=== PATIENT | female | born 1950 | race Caucasian/White ===

== ENCOUNTER 2017-12-31 10:59 | Outpatient (CLI) | payer BC | END 2017-12-31 11:00 | disposition home or self-care (01) | LOC: BICMAMMO 10:59 | PROVIDERS: ATTEND Internal Medicine | DX: Z12.31 Encounter for screening mammogram for malignant neoplasm of breast (principal); R92.1 Mammographic calcification found on diagnostic imaging of breast | CPT/HCPCS: 77063; 77067 ==

== ENCOUNTER 2019-03-10 16:48 | Inpatient (IN) | payer BC, MEDICARE ==
[2019-03-10 17:47] LABS: #Basophils 0.1 thou/uL (0.0-0.2); #Lymphocytes 1.6 thou/uL (1.20-3.40); #Monocytes 0.7 thou/uL (0.11-0.59); #Neutrophils 3.6 thou/uL (1.40-6.50); %Basophils 0.9 % (0.0-1.0); %Eosinophils 0.7 % (0.0-10.0); %Lymphocytes 27.5 % (21.0-51.0); %Monocytes 11.2 % (0.0-10.0); %Neutrophils 59.7 % (42.0-75.0); Mean Corpuscular HGB CONC 34.1 g/dL (32.0-36.0); Mean Corpuscular Hemoglobin 35.3 pg (27.0-31.0); Mean Platelet Volume 8.3 fL (7.4-10.4); Platelet Count 198 thou/uL (130-400); RBC Distribution Width 12.5 % (11.5-14.5); Red Blood Cell (RBC) Count 3.97 mill/uL (4.20-5.40)
--- NOTE | 2019-03-10 17:54 | RAD ---
Chest one view HISTORY: Cough. COMPARISON: 07/06/2017. FINDINGS: Cardiac silhouette is magnified by projection. Pulmonary vasculature is unremarkable. Media stinum is midline. No confluent airspace consolidation or evidence of pneumothorax. IMPRESSION: No active cardiopulmonary abnormalities are demonstrated.
[2019-03-10 18:11] LABS: ALT (SGPT) 12 U/L (8-55); AST (SGOT) 27 U/L (5-34); Albumin 3.7 g/dL (3.4-4.8); Alkaline Phosphatase 113 U/L (40-110); Anion Gap 14 mmol/L (10-20); BUN (Urea Nitrogen) 13 mg/dL (9.8-20.1); Bilirubin, Total 0.7 mg/dL (0.2-1.2); Calc. Creatinine Clearance 0 mL/min (70-130); Calcium 8.8 mg/dL (7.8-10.44); Carbon Dioxide 28 mmol/L (23-31); Chloride 99 mmol/L (98-107); Estimated GFR-MDRD 51; Globulin 3.2 g/dL (2.4-3.5); Glucose 113 mg/dL (83-110); Potassium 4.2 mmol/L (3.5-5.1); Protein, Total 6.9 g/dL (6.0-8.3); Sodium 137 mmol/L (136-145)
[2019-03-10 18:36] LABS: CKMB 6.5 ng/mL (0-6.6)
[2019-03-10] MEDS ORDERED: Nitroglycerin 2% Ointment 1 INCH/1 GM Packet ONE (18:36)
[2019-03-10 19:16] LABS: Prothrombin Time 13.5 SEC (12.0-14.7)
[2019-03-10] MEDS ORDERED: Enoxaparin Sodium 80 MG/0.8 ML SYRINGE ONE (19:35)
[2019-03-10] MEDS ORDERED: Ondansetron PF 4 MG/2 ML Vial IVP PRN (21:01)
[2019-03-10] MEDS ORDERED: Ondansetron ODT 4 MG TAB SL PRN (21:01)
[2019-03-10] MEDS: Benzonatate 100 MG CAP PO PRN (21:51)
[2019-03-10 22:41] LABS: Troponin I 0.845 ng/mL (< 0.028)
[2019-03-11] MEDS: Benzonatate 100 MG CAP PO PRN ×4 (02:25→20:14)
[2019-03-11 02:37] LABS: Critical Call Chem Troponin I RESULT DECREASING; Troponin I 0.637 ng/mL (< 0.028)
--- NOTE | 2019-03-11 03:05 | HP ---
CHIEF COMPLAINT: Cough. HISTORY OF PRESENT ILLNESS: The patient is a very pleasant 69-year-old female who stated that about a week ago she started having significant allergy symptoms with some coughing, runny nose, some rhinorrhea and dry cough. She states that she is allergic to Concho. The patient states that she initially got better; however, for the past few days, she has been having some postnasal drip and has been having some dry cough. The patient stated that she has been unable to tolerate the cough to the point that she is unable to sleep at night. She denies any chest tightness, chest pain, any shortness of breath on exertion, any nausea or vomiting. She states that at times she does get dry heaves from the postnasal drip. PAST MEDICAL HISTORY: She has a history of hypertension and has a history of asthma. She also has seasonal allergies and history of spinal stenosis. PAST SURGICAL HISTORY: She has had a cholecystectomy. She has had a gastric bypass, right ankle surgery, carpal tunnel surgery and a lower back surgery. SOCIAL HISTORY: She drinks about 3-4 ounces of glasses of wine a day. Denies any smoking history or drug use. She is a full code. Lives with her . ALLERGIES: SHE IS ALLERGIC TO CODEINE. SHE GETS ITCHING AND ALLERGIC TO HYDROCODONE ALSO. MEDICATIONS: 1. She is on aspirin 81 mg daily. 2. She is on lisinopril 10 mg daily. 3. Escitalopram 10 mg daily. 4. Folic acid 1 daily. 5. Triamterene and hydrochlorothiazide 37.5/25 mg 1 p.o. daily. PHYSICAL EXAMINATION: VITAL SIGNS: Temperature of 98, 20, pulse of 99, blood pressure of 125/70. GENERAL: She is awake, alert, and oriented x3. Does not appear in distress. HEENT: Normocephalic, atraumatic. No lymphadenopathy noted. Pupils equal reactive to light. CV: S1 and S2 present. rhythm. LUNGS: Clear to auscultation. No rhonchi or wheezes noted. ABDOMEN: Soft and nontender. Bowel sounds are present x2. She does have some pain, which is superficial from her coughing around her abdominal wall area. EXTREMITIES: No edema. Pedal pulses are present x2. NEUROVASCULAR: She has no focal deficits noted. SKIN: No cuts, lesions or bruises noted. LABORATORY DATA: As of the following; WBCs of 6.0, hemoglobin of 14.0, hematocrit of 41.1. Her platelets are 198. Chemistry: Sodium 137, potassium of 4.2, BUN of 13, creatinine 1.06. Her troponin initially was 0.785, her BNP was 795. IMAGING: She did have an x-ray, which did not show any acute abnormalities. She also had an EKG, which indicated some T wave changes to her lateral leads. ASSESSMENT AND PLAN: The patient is a very pleasant 69-year-old female who initially presented to the hospital for cough and was found to have elevated troponins and was admitted to the hospital for further evaluation. 1. Non-ST elevation myocardial infarction. The patient does have some T-wave changes. She is currently chest pain free. She does have elevated troponins. She denies any shortness of breath on exertion. We will start her on enoxaparin 1 mg/kg twice daily. Cardiology has been consulted. May also go ahead and get an echocardiogram for further evaluation. The patient has had a stress test a long time ago, several years ago. According to her, she has no history of cardiac disease. 2. Seasonal allergies. We will continue her current medication. Maybe possibly put on Claritin as needed and continue to monitor. 3. Cough. I have offered her some Tessalon Perles, also will try Robitussin. The patient has been taking [id number] Delsym, which has not really helped her. She is unable to take the Codeine due to the itching. 4. Deep venous thrombosis prophylaxis. She is already on anticoagulation. Job ID: [id number]
[2019-03-11 06:29] LABS: Critical Call Chem Troponin I RESULT DECREASING; Troponin I 0.585 ng/mL (< 0.028)
[2019-03-11] MEDS: Hydrochlorothiazide 25 MG TAB PO SCH (08:16)
[2019-03-11] MEDS: Escitalopram Oxalate 10 mg Tablet PO SCH (08:17)
[2019-03-11] MEDS: Aspirin 81 mg Enteric Coated Tablet PO SCH (08:17)
[2019-03-11] MEDS ORDERED: Enoxaparin Sodium 80 MG/0.8 ML SYRINGE SC SCH (09:00)
[2019-03-11] MEDS ORDERED: Lisinopril 10 MG TAB PO SCH (09:00)
--- NOTE | 2019-03-11 14:37 | CON ---
DATE OF CONSULTATION: HISTORY OF PRESENT ILLNESS: The patient is a 69-year-old woman, who presented with coughing and dyspnea. The patient has no previous cardiac history. She recently reported having nasal congestion and coughing. The patient denies having any chest discomfort. She also denies having any PND, orthopnea, or edema. The patient's cardiac risk factor is hypertension. PAST MEDICAL HISTORY: 1. Hypertension. 2. Asthma. 3. Spinal stenosis. 4. Depression. PAST SURGICAL HISTORY: She has had gastric bypass, ankle surgery, carpal tunnel surgery, back surgery, and cholecystectomy. SOCIAL HISTORY: Nonsmoker. ALLERGIES: CODEINE AND HYDROCODONE. MEDICATIONS ON ADMISSION: Included; 1. Lisinopril 10 daily. 2. Hydrochlorothiazide 25 daily. 3. Lexapro 5 daily. REVIEW OF SYSTEMS: Ten-point system otherwise unremarkable. No history of easy bruising or bleeding. PHYSICAL EXAMINATION: GENERAL: This is an obese woman, in no acute distress. VITAL SIGNS: Blood pressure 112/55. NECK: Showed no jugular venous distention. LUNGS: Scattered wheezes. HEART: Regular rate and rhythm. Normal S1 and S2. 1/6 systolic murmur. ABDOMEN: Distended. EXTREMITIES: Showed no edema. VASCULAR: Radial pulses are 2+. LABORATORY RESULTS: White blood cell count 6.0, hemoglobin 14.0, hematocrit 41.1, and platelets are 148. Sodium was 137, potassium 4.2, chloride 99, bicarbonate 20, BUN 13, creatinine 1.0, and glucose is 113. Troponin was 0.0841. Her EKG revealed her to have normal sinus rhythm with low-voltage QRS, ST-T wave abnormality suggestive of ischemia. IMPRESSION AND PLAN: 1. Non-Q-wave myocardial infarction. 2. Cardiomyopathy. 3. Probable severe coronary artery disease. 4. Hypertension. 5. Asthma. 6. Depression. This patient has ischemic cardiomyopathy. She presents with elevated cardiac enzymes. From a cardiac standpoint, I have recommended proceeding with cardiac catheterization to evaluate the extent of her coronary artery disease. This patient has significant decrease in left ventricular function based on echocardiogram. We will discontinue her lisinopril and start low-dose Entresto. We would also recommend a low dose of Coreg if the patient can tolerate. We will add spironolactone. We will follow this patient with you through her hospitalization in consult, Dr. Haskins. Job ID: [id number]
[2019-03-11] MEDS: Guaifenesin DM 100-10/5 ML UDCUP PO PRN ×2 (15:51→20:14)
--- NOTE | 2019-03-11 15:51 | PDOC.HOSPP ---
- Subjective Subjective: Feels ok. She has a cough, but was otherwise asymptomatic and very surprised by the troponins. Denies CP or SOB. - Objective Vital Signs & Weight: Vital Signs (12 hours) Temp Pulse Resp BP Pulse Ox 03/11/19 11:10 98.4 F 111 H 20 112/64 97 03/11/19 08:11 97.8 F 103 H 20 112/55 L 96 03/11/19 03:52 98.1 F 98 20 91/55 L 94 L Weight Weight 170 lb Result Diagrams: 03/10/19 17:38 03/10/19 17:38 Hospitalist ROS - Medication Medications: Active Medications Generic Name Dose Route Start Last Admin Trade Name Freq PRN Reason Stop Dose Admin Aspirin 81 mg 03/11/19 09:00 03/11/19 08:17 Ecotrin PO 81 mg DAILY CLIFFORD Administration Benzonatate 100 mg 03/10/19 21:39 03/11/19 14:08 Tessalon PO 100 mg TIDPRN PRN Administration Cough Escitalopram Oxalate 5 mg 03/11/19 09:00 03/11/19 08:17 Lexapro PO 5 mg DAILY CLIFFORD Administration Hydrochlorothiazide 25 mg 03/11/19 09:00 03/11/19 08:16 Hydrochlorothiazide PO Not Given DAILY CLIFFORD Sodium Chloride 10 ml 03/11/19 09:00 03/11/19 08:17 Flush - Normal Saline IVF 10 ml Q12HR CLIFFORD Administration - Exam General Appearance: NAD, awake alert Heart: RRR, no murmur, no gallops, no rubs, normal peripheral pulses Respiratory: CTAB, no wheezes, no rales, no ronchi, normal chest expansion, no tachypnea, normal percussion Gastrointestinal: soft, non-tender, non-distended, normal bowel sounds, no palpable masses, no hepatomegaly, no splenomegaly, no bruit Extremities: no cyanosis, no clubbing, no edema Skin: normal turgor Musculoskeletal: normal tone Psychiatric: normal affect, normal behavior, A&O x 3 Hosp A/P (1) NSTEMI (non-ST elevated myocardial infarction) Code(s): I21.4 - NON-ST ELEVATION (NSTEMI) MYOCARDIAL INFARCTION Status: Acute (2) Cough Code(s): R05 - COUGH Status: Acute (3) HTN (hypertension) Code(s): I10 - ESSENTIAL (PRIMARY) HYPERTENSION Status: Acute - Plan Cardiology consulted. Plan is for a cath tomorrow. Meds initiated. Statin, BB, ASA. Will check flu screen and give anti-tussives.
[2019-03-11] MEDS: Cepastat Lozenges 1 LOZ PO PRN (16:37)
[2019-03-11] MEDS: Carvedilol 3.125 MG TAB PO SCH (16:38)
[2019-03-11] MEDS: Rosuvastatin 20 MG TAB PO SCH (20:14)
[2019-03-12] MEDS: Guaifenesin DM 100-10/5 ML UDCUP PO PRN ×3 (00:05→20:18)
[2019-03-12 02:44] LABS: Platelet Count 158 thou/uL (130-400)
[2019-03-12 05:28] VITALS: BMI 31.2
[2019-03-12] MEDS: Carvedilol 3.125 MG TAB PO SCH ×2 (05:28→16:10)
[2019-03-12] MEDS: Benzonatate 100 MG CAP PO PRN ×3 (05:28→20:18)
[2019-03-12] MEDS: Spironolactone 25 MG TAB PO SCH (05:29)
[2019-03-12] MEDS ORDERED: Heparin (Artline) 1,000 ML ONE (08:14)
[2019-03-12] MEDS ORDERED: Midazolam HCl 2 mg/2 ml Vial ONE (08:15)
[2019-03-12] MEDS ORDERED: Iopamidol 370 76% 100 ML VIAL ONE (08:29)
[2019-03-12] MEDS ORDERED: Sodium Chloride 0.9% 200 ML IV PRN (10:00)
[2019-03-12] MEDS ORDERED: Nitroglycerin 0.4 MG TAB (25 Tab Bottle) SL PRN (10:00)
[2019-03-12] MEDS: Aspirin 81 mg Enteric Coated Tablet PO SCH (10:54)
[2019-03-12] MEDS: Escitalopram Oxalate 10 mg Tablet PO SCH (10:54)
[2019-03-12] MEDS: Cepastat Lozenges 1 LOZ PO PRN (10:54)
[2019-03-12] MEDS: Hydrochlorothiazide 25 MG TAB PO SCH (10:55)
[2019-03-12] MEDS: Rosuvastatin 20 MG TAB PO SCH (20:18)
--- NOTE | 2019-03-12 22:14 | PDOC.HOSPP ---
- Subjective Subjective: Feels fine. Still has a bit of a cough. - Objective Vital Signs & Weight: Vital Signs (12 hours) Temp Pulse Resp BP Pulse Ox 03/12/19 19:20 97 03/12/19 19:15 98.0 F 89 16 107/52 L 97 03/12/19 15:43 98.5 F 91 18 105/59 L 96 03/12/19 11:26 98.0 F 91 18 102/54 L 97 Weight Weight 170 lb 12.8 oz I&O: 03/11/19 03/12/19 03/13/19 06:59 06:59 06:59 Intake Total 250 720 Output Total 50 500 Balance 200 220 Result Diagrams: 03/12/19 02:38 03/12/19 02:38 Hospitalist ROS - Medication Medications: Active Medications Generic Name Dose Route Start Last Admin Trade Name Freq PRN Reason Stop Dose Admin Aspirin 81 mg 03/11/19 09:00 03/12/19 10:54 Ecotrin PO 81 mg DAILY CLIFFORD Administration Benzonatate 100 mg 03/10/19 21:39 03/12/19 20:18 Tessalon PO 100 mg TIDPRN PRN Administration Cough Carvedilol 3.125 mg 03/11/19 17:00 03/12/19 16:10 Coreg PO 3.125 mg BID-WM CLIFFORD Administration Escitalopram Oxalate 5 mg 03/11/19 09:00 03/12/19 10:54 Lexapro PO 5 mg DAILY CLIFFORD Administration Guaifenesin/Dextromethorphan 15 ml 03/11/19 15:20 03/12/19 20:18 Robitussin Dm PO 15 ml Q4H PRN Administration Cough Hydrochlorothiazide 25 mg 03/11/19 09:00 03/12/19 10:55 Hydrochlorothiazide PO Not Given DAILY CLIFFORD Rosuvastatin Calcium 20 mg 03/11/19 21:00 03/12/19 20:18 Crestor PO 20 mg HS CLIFFORD Administration Sodium Chloride 10 ml 03/11/19 09:00 03/12/19 20:20 Flush - Normal Saline IVF 10 ml Q12HR CLIFFORD Administration Spironolactone 25 mg 03/12/19 08:00 03/12/19 05:29 Aldactone PO Not Given QAM-WM CLIFFORD Throat Lozenges 1 sylvia 03/11/19 15:20 03/12/19 10:54 Cepastat Lozenges PO 1 sylvia Q2H PRN Administration Sore Throat - Exam General Appearance: NAD, awake alert Heart: RRR, no murmur, no gallops, no rubs, normal peripheral pulses Respiratory: CTAB, no wheezes, no rales, no ronchi, normal chest expansion, no tachypnea, normal percussion Gastrointestinal: soft, non-tender, non-distended, normal bowel sounds, no palpable masses, no hepatomegaly, no splenomegaly, no bruit Skin: normal turgor Neurological: no focal deficits Musculoskeletal: normal tone Psychiatric: normal affect, normal behavior, A&O x 3 Hosp A/P (1) NSTEMI (non-ST elevated myocardial infarction) Code(s): I21.4 - NON-ST ELEVATION (NSTEMI) MYOCARDIAL INFARCTION Status: Acute (2) Cough Code(s): R05 - COUGH Status: Acute (3) HTN (hypertension) Code(s): I10 - ESSENTIAL (PRIMARY) HYPERTENSION Status: Acute (4) Cardiomyopathy Code(s): I42.9 - CARDIOMYOPATHY, UNSPECIFIED Status: Acute - Plan Appears to have a severe non-ischemic cardiomyopathy. Concerning for viral cardiomyopathy given the cough. Meds initiated. Statin, BB, ASA. Will need LifeVest. Cardiology following.
[2019-03-13] MEDS: Cepastat Lozenges 1 LOZ PO PRN ×2 (01:12→23:27)
[2019-03-13] MEDS: Benzonatate 100 MG CAP PO PRN ×4 (01:12→23:27)
[2019-03-13] MEDS: Guaifenesin DM 100-10/5 ML UDCUP PO PRN ×4 (01:12→23:27)
[2019-03-13 04:54] LABS: Anion Gap 11 mmol/L (10-20); BUN (Urea Nitrogen) 15 mg/dL (9.8-20.1); Calc. Creatinine Clearance 78 mL/min (70-130); Calcium 8.4 mg/dL (7.8-10.44); Carbon Dioxide 27 mmol/L (23-31); Chloride 103 mmol/L (98-107); Estimated GFR-MDRD 70; Glucose 125 mg/dL (83-110); Potassium 4.1 mmol/L (3.5-5.1); Sodium 137 mmol/L (136-145)
[2019-03-13] MEDS: Escitalopram Oxalate 10 mg Tablet PO SCH (09:53)
[2019-03-13] MEDS: Spironolactone 25 MG TAB PO SCH (09:53)
[2019-03-13] MEDS: Carvedilol 3.125 MG TAB PO SCH ×2 (09:53→16:34)
[2019-03-13] MEDS: Aspirin 81 mg Enteric Coated Tablet PO SCH (09:53)
--- NOTE | 2019-03-13 20:02 | PDOC.HOSPP ---
- Subjective Subjective: Feeling better today. Still has some cough, but meds helping. - Objective Vital Signs & Weight: Vital Signs (12 hours) Temp Pulse Pulse Pulse Resp BP BP 03/13/19 16:32 98.1 F 84 18 03/13/19 11:12 98 F 84 14 03/13/19 10:40 90 87 101/54 L 118/61 03/13/19 10:21 BP Pulse Ox Pulse Ox Pulse Ox 03/13/19 16:32 92/53 L 98 03/13/19 11:12 95/50 L 97 03/13/19 10:40 97 99 03/13/19 10:21 96 Weight Weight 172 lb 3.2 oz I&O: 03/12/19 03/13/19 03/14/19 06:59 06:59 06:59 Intake Total 250 1020 840 Output Total 50 500 700 Balance 200 520 140 Result Diagrams: 03/12/19 02:38 03/13/19 04:26 Hospitalist ROS - Medication Medications: Active Medications Generic Name Dose Route Start Last Admin Trade Name Freq PRN Reason Stop Dose Admin Aspirin 81 mg 03/11/19 09:00 03/13/19 09:53 Ecotrin PO 81 mg DAILY CLIFFORD Administration Benzonatate 100 mg 03/10/19 21:39 03/13/19 18:46 Tessalon PO 100 mg TIDPRN PRN Administration Cough Carvedilol 3.125 mg 03/11/19 17:00 03/13/19 16:34 Coreg PO 3.125 mg BID-WM CLIFFORD Administration Escitalopram Oxalate 5 mg 03/11/19 09:00 03/13/19 09:53 Lexapro PO 5 mg DAILY CLIFFORD Administration Guaifenesin/Dextromethorphan 15 ml 03/11/19 15:20 03/13/19 18:46 Robitussin Dm PO 15 ml Q4H PRN Administration Cough Rosuvastatin Calcium 20 mg 03/11/19 21:00 03/12/19 20:18 Crestor PO 20 mg HS CLIFFORD Administration Sacubitril/Valsartan 1 tab 03/13/19 09:00 03/13/19 09:53 Entresto 24 Mg-26 Mg Tablet PO 1 tab BID CLIFFORD Administration Sodium Chloride 10 ml 03/11/19 09:00 03/13/19 09:55 Flush - Normal Saline IVF 10 ml Q12HR CLIFFORD Administration Spironolactone 25 mg 03/12/19 08:00 03/13/19 09:53 Aldactone PO 25 mg QAM-WM CLIFFORD Administration Throat Lozenges 1 sylvia 03/11/19 15:20 03/13/19 01:12 Cepastat Lozenges PO 1 sylvia Q2H PRN Administration Sore Throat - Exam General Appearance: NAD, awake alert Neck: supple, symmetric, no JVD, no thyromegaly, no lymphadenopathy, no carotid bruit Heart: RRR, no murmur, no gallops, no rubs, normal peripheral pulses Respiratory: CTAB, no wheezes, no rales, no ronchi, normal chest expansion, no tachypnea, normal percussion Gastrointestinal: soft, non-tender, non-distended, normal bowel sounds, no palpable masses, no hepatomegaly, no splenomegaly, no bruit Extremities: no cyanosis, no clubbing, no edema Skin: normal turgor, no lesions, no rashes Musculoskeletal: normal tone, normal strength, no muscle wasting Psychiatric: normal affect, normal behavior, A&O x 3 Hosp A/P (1) Cardiomyopathy Code(s): I42.9 - CARDIOMYOPATHY, UNSPECIFIED Status: Acute (2) NSTEMI (non-ST elevated myocardial infarction) Code(s): I21.4 - NON-ST ELEVATION (NSTEMI) MYOCARDIAL INFARCTION Status: Acute (3) Cough Code(s): R05 - COUGH Status: Acute (4) HTN (hypertension) Code(s): I10 - ESSENTIAL (PRIMARY) HYPERTENSION Status: Acute - Plan Appears to have a severe non-ischemic cardiomyopathy. Concerning for viral or takosubo cardiomyopathy. Meds initiated. Statin, BB, ASA. Will need LifeVest. Cardiology following. Can DC when LifeVest provided.
[2019-03-13] MEDS: Rosuvastatin 20 MG TAB PO SCH (20:19)
[2019-03-14 02:25] LABS: Platelet Count 141 thou/uL (130-400)
[2019-03-14] MEDS: Guaifenesin DM 100-10/5 ML UDCUP PO PRN ×2 (02:33→08:10)
[2019-03-14] MEDS: Carvedilol 3.125 MG TAB PO SCH (08:10)
[2019-03-14] MEDS: Spironolactone 25 MG TAB PO SCH (08:10)
[2019-03-14] MEDS: Aspirin 81 mg Enteric Coated Tablet PO SCH (08:10)
[2019-03-14] MEDS: Escitalopram Oxalate 10 mg Tablet PO SCH (08:10)
[2019-03-14] MEDS: Benzonatate 100 MG CAP PO PRN (08:10)
--- NOTE | 2019-03-14 09:56 | PDOC.EVN ---
Event Note - Event Note Event Note: Clarification that the patient has indeterminate troponins consistent with NSTEMI type II from cardiomyopathy.
[2019-03-14 11:28] VITALS: BP 95/52; TEMP 98
--- NOTE | 2019-03-15 12:35 | EKG ---
Test Reason : Blood Pressure : / mmHG Vent. Rate : 099 BPM Atrial Rate : 099 BPM P-R Int : 142 ms QRS Dur : 082 ms QT Int : 424 ms P-R-T Axes : -12 026 219 degrees QTc Int : 544 ms Sinus rhythm with occasional Premature ventricular complexes Low voltage QRS Abnormal ECG T wave inversion V3-V6 No ST elevation/KS Confirmed by ZAKIA MOODY M.D. ([id number]), loan expeditor LELAND RIVERA ([id number]) on 03/15/2019 12:35:06 PM Referred By: Confirmed By:ZAKIA MOODY M.D.
--- NOTE | 2019-03-15 12:35 | EKG ---
Test Reason : ELEVATED TROP Blood Pressure : / mmHG Vent. Rate : 098 BPM Atrial Rate : 098 BPM P-R Int : 144 ms QRS Dur : 078 ms QT Int : 404 ms P-R-T Axes : 056 042 201 degrees QTc Int : 515 ms Sinus rhythm with frequent Premature ventricular complexes Low voltage QRS Prolonged QT Abnormal ECG Confirmed by ZAKIA MOODY M.D. ([id number]), publications editor LELAND RIVERA ([id number]) on 03/15/2019 12:35:22 PM Referred By: Confirmed By:ZAKIA MOODY M.D.
--- NOTE | 2019-03-16 00:20 | DIS ---
DATE OF ADMISSION: 03/10/2019 DATE OF DISCHARGE: 03/14/2019 DISCHARGE DIAGNOSES: 1. Cardiomyopathy, nonischemic. 2. Cough. 3. Non-ST elevation myocardial infarction, type 2. 4. Hypertension. HISTORY OF PRESENT ILLNESS: This patient is a 69-year-old female, who developed a cough and presented to her primary care provider's office, where she was noted to be somewhat hypotensive and was subsequently referred to the emergency department for further evaluation. There, she was noted to have elevation of her troponin and was subsequently referred for admission to the hospital with what appeared to be NSTEMI. HOSPITAL COURSE: The patient was admitted to the hospital, started on some aspirin, Lovenox, and had a cardiology consult obtained. She had an echocardiogram performed, which surprisingly revealed an ejection fraction of 15% to 20% with apical akinesis. She subsequently underwent heart catheterization revealing no significant atherosclerotic disease and it was felt the patient was suffering from a nonischemic cardiomyopathy. Given her cough, it was concerning that this might have been viral. However, given the apical akinesis, there was some concern for Takotsubo cardiomyopathy. The patient has remained largely asymptomatic from the cardiomyopathy with the exception of the mild cough, which improved with mild antitussives. She was started on appropriate medications for the cardiomyopathy, including aspirin, statin, beta blockers and Entresto. She tolerated these medications relatively well and was fitted for a LifeVest. She was then felt to be stable for discharge to home. PHYSICAL EXAMINATION: VITAL SIGNS: On the day of discharge, temperature is 98, pulse 84, respirations 18, O2 saturation 96% on room air, BP 95/52. GENERAL APPEARANCE: Age-appropriate female, in no distress. Awake and alert. HEART: Regular rate and rhythm. LUNGS: Clear. ABDOMEN: Benign. EXTREMITIES: With no edema. DISPOSITION: The patient will be discharged to home with a LifeVest. She will have a heart healthy low-sodium diet. ACTIVITY: As tolerated. DISCHARGE MEDICATIONS: Will include; 1. Sublingual nitroglycerin p.r.n. 2. Aspirin 81 mg daily. 3. Tessalon 100 mg p.o. t.i.d. p.r.n. 4. Carvedilol 3.125 one p.o. b.i.d. 5. Cepastat lozenges p.r.n. 6. Robitussin DM p.r.n. 7. Crestor 20 mg at bedtime. 8. Entresto 24/ one p.o. b.i.d. 9. Aldactone 25 mg q.a.m. She will continue her usual home medication regimen of Lexapro 5 mg daily and her p.r.n. for headache or pain as needed. She will discontinue her lisinopril and her hydrochlorothiazide. FOLLOWUP: She will follow up with Tatum Preston on 03/18/[address] Simone Spaulding in 2 to 3 weeks. She will also be following up with the [facility] in [place], and she can return to the hospital at any time she has the need to do so. TIME SPENT: Total time in discharge planning activities was 33 minutes. Job ID: [id number]
== END 2019-03-14 12:14 | disposition home or self-care (01) | DRG 281 ==
LOC: ERS 16:48 → 2NO 21:02
PROVIDERS: ADMIT Internal Medicine; ATTEND Internal Medicine
PROC: 4A023N7 Measurement of Cardiac Sampling and Pressure, Left Heart, Percutaneous Approach (ICD-10-PCS; principal; 2019-03-12)
PROC: B2011ZZ Plain Radiography of Multiple Coronary Arteries using Low Osmolar Contrast (ICD-10-PCS; 2019-03-12)
PROC: B2051ZZ Plain Radiography of Left Heart using Low Osmolar Contrast (ICD-10-PCS; 2019-03-12)
DX: I51.81 Takotsubo syndrome (principal); I21.A1 Myocardial infarction type 2; I42.8 Other cardiomyopathies; E78.5 Hyperlipidemia, unspecified; I10 Essential (primary) hypertension; F32.9 Major depressive disorder, single episode, unspecified; J45.909 Unspecified asthma, uncomplicated; Z98.84 Bariatric surgery status; Z90.49 Acquired absence of other specified parts of digestive tract; Z88.5 Allergy status to narcotic agent; Z98.890 Other specified postprocedural states
CPT/HCPCS: 36415; 71045; 76942; 80048; 80053; 82553; 82565; 83735; 83880; 84484; 85014; 85018; 85025; 85049; 85610; 87804; 93005; 93306; 93458; 93798; 94760; 96360; 96361; 96372; C1769; J1644; J1650; J2250; J3475; J3490; Q9967

== ENCOUNTER 2019-04-03 14:10 | Outpatient (CLI) | payer BC ==
--- NOTE | 2019-04-03 15:40 | RAD ---
EXAM: CHEST TWO VIEWS: 04/03/19 HISTORY: Cough and congestion, pain, stress related cardiomyopathy. COMPARISON: 03/10/2019. FINDINGS: Heart size is normal. The lungs are clear of acute process. No confluent pneumonia, overt edema, or p leural effusion. IMPRESSION: No significant acute intrathoracic disease. Stable from prior study. POS: [facility]
== END 2019-04-03 14:11 | disposition home or self-care (01) ==
LOC: BICRAD 14:10
PROVIDERS: ATTEND Internal Medicine
DX: R05 Cough (principal)
CPT/HCPCS: 71046

== ENCOUNTER 2020-12-17 14:13 | Outpatient (CLI) | payer MEDICARE | END 2020-12-17 14:14 | disposition home or self-care (01) | LOC: BICMAMMO 14:13 | PROVIDERS: ATTEND Internal Medicine | DX: Z12.31 Encounter for screening mammogram for malignant neoplasm of breast (principal); Z13.820 Encounter for screening for osteoporosis; Z78.0 Asymptomatic menopausal state; M85.852 Other specified disorders of bone density and structure, left thigh | CPT/HCPCS: 77063; 77067; 77080 ==

== ENCOUNTER 2021-12-22 12:41 | Outpatient (CLI) | payer OTHER | END 2021-12-22 12:42 | disposition home or self-care (01) | LOC: BICMAMMO 12:41 | PROVIDERS: ATTEND Internal Medicine | DX: Z12.31 Encounter for screening mammogram for malignant neoplasm of breast (principal) | CPT/HCPCS: 77063; 77067 ==

== ENCOUNTER 2021-12-26 13:02 | Outpatient (CLI) | payer OTHER | END 2021-12-26 13:03 | disposition home or self-care (01) | LOC: BICRAD 13:02 | PROVIDERS: ATTEND Internal Medicine | DX: R07.89 Other chest pain (principal); Z13.820 Encounter for screening for osteoporosis; R63.4 Abnormal weight loss; E55.9 Vitamin D deficiency, unspecified; I10 Essential (primary) hypertension; Z79.899 Other long term (current) drug therapy | CPT/HCPCS: 36415; 71046; 80053; 80061; 81001; 82306; 83036; 84439; 84443; 85025 ==

== ENCOUNTER 2023-05-18 12:46 | Outpatient (CLI) | payer OTHER | END 2023-05-18 12:47 | disposition home or self-care (01) | LOC: BICMAMMO 12:46 | PROVIDERS: ATTEND Internal Medicine | DX: Z12.31 Encounter for screening mammogram for malignant neoplasm of breast (principal); Z13.820 Encounter for screening for osteoporosis; Z78.0 Asymptomatic menopausal state; N64.89 Other specified disorders of breast; M85.852 Other specified disorders of bone density and structure, left thigh | CPT/HCPCS: 77063; 77067; 77080 ==

== ENCOUNTER → 2024-12-18 | Day surgery (SDC) | payer OTHER ==
[~2024-12-18] MED LIST: CEFAZOLIN 1 GM VIAL ONE; Cyclopentolate 1% Opth Drop 2 ML BOT ONE; EPINEPHrine 0.3 MG in Ophthalmic Irrigation Solution 500 ML IRR SCH; Lidocaine 1% PF 5 ML VIAL ONE; Lidocaine 4% PF 5 ML AMP ONE; Maxitrol 0.1% Opth Oint 3.5 GM TUBE ONE; PROPOFOL 20 ML ONE
== END ==
LOC: SDC 14:57
PROVIDERS: ATTEND Ophthalmology Retina Specialist
PROC: 08T43ZZ Resection of Right Vitreous, Percutaneous Approach (ICD-10-PCS; principal; 2024-12-18)
DX: H33.011 Retinal detachment with single break, right eye (principal); Z88.5 Allergy status to narcotic agent
CPT/HCPCS: 67025; 67108; J0166; J0690; J2250; J2704; J3010; J3301; J3490

== ENCOUNTER 2025-01-29 15:08 | Day surgery (SDC) | payer OTHER ==
[2025-01-29] MEDS ORDERED: CEFAZOLIN 1 GM VIAL ONE ×2 (15:59→17:13)
[2025-01-29] MEDS ORDERED: Cyclopentolate 1% Opth Drop 2 ML BOT ONE (16:23)
[2025-01-29] MEDS ORDERED: Cyclopentolate 1% Opth Drop 2 ML BOT R EYE SCH (17:00)
[2025-01-29] MEDS ORDERED: EPINEPHrine 0.3 MG in Ophthalmic Irrigation Solution 500 ML IRR SCH (17:00)
[2025-01-29] MEDS ORDERED: Lidocaine 1% PF 5 ML VIAL ONE (17:13)
[2025-01-29] MEDS ORDERED: Lidocaine 4% PF 5 ML AMP ONE (17:13)
[2025-01-29] MEDS ORDERED: PROPOFOL 200 MG/20 ML VIAL ONE (17:13)
[2025-01-29] MEDS ORDERED: Maxitrol 0.1% Opth Oint 3.5 GM TUBE ONE (17:13)
== END 2025-01-29 18:27 | disposition home or self-care (01) ==
LOC: SDC 15:08
PROVIDERS: ATTEND Ophthalmology Retina Specialist
PROC: 08T43ZZ Resection of Right Vitreous, Percutaneous Approach (ICD-10-PCS; principal; 2025-01-29)
DX: H33.021 Retinal detachment with multiple breaks, right eye (principal); Z98.49 Cataract extraction status, unspecified eye; Z96.1 Presence of intraocular lens; Z88.5 Allergy status to narcotic agent
CPT/HCPCS: 67025; 67108; J0166; J0690; J2003; J2704; J3301; J3490